=== PATIENT | male | born 1995 | race Two or more races ===

== ENCOUNTER 2017-06-02 07:15 | Emergency (ER) | payer OTHER ==
[~2017-06-02] VITALS: Ht 165.1 cm; Wt 67.1 kg
[2017-06-02 07:15] VITALS: BP 131/90
== END 2017-06-02 07:46 | disposition home or self-care (01) ==
LOC: ER 07:22
DX: S86.911A Strain of unspecified muscle(s) and tendon(s) at lower leg level, right leg, initial encounter (principal); M12.9 Arthropathy, unspecified; F17.200 Nicotine dependence, unspecified, uncomplicated; W21.02XA Struck by soccer ball, initial encounter; Y93.66 Activity, soccer; Y92.89 Other specified places as the place of occurrence of the external cause; Y99.9 Unspecified external cause status
CPT/HCPCS: 99282; A4606; Z7610